=== PATIENT | female | born 1960 | race Caucasian/White ===

== ENCOUNTER 2021-04-29 22:19 | Inpatient (IN) | payer OTHER ==
[~2021-04-29] VITALS: Ht 160 cm; Wt 81.2 kg
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
--- NOTE | 2021-04-30 05:53 | NUR ---
Medications restarted per HABILITATION WORKER [place]ould but due to not being able to prescribe controlled substances pt's clonazepam, restoril, and norco were not restarted and will have to be addressed by the day team. HABILITATION WORKER Ada did order pt's tramadol. Per [facility] pt's clonazepam is 0.5 mg BIDPRN but pt states "it's four times a day". Pt was educated that this would have to be verified with her pharmacy. Pt states she uses [facility] in [place], phone number and it opens at 0700.
[2021-04-30 06:09] LABS: CHOLESTEROL 137 mg/dL (<200); HDL CHOLESTEROL 41 mg/dL (>40); LDL CHOLESTEROL 78 mg/dL (<100); TC:HDL 3.3 Ratio (Not establshd); TRIGLYCERIDE 91 mg/dL (<150); VLDL 18 mg/dL (<40)
[2021-04-30 06:17] LABS: SERUM ASSESSMENT Clear
--- NOTE | 2021-04-30 07:20 | NUR ---
[facility] was called and clonazepam was verified as last filled on 04/08/21 for 0.5mg QID.
[2021-04-30 08:45] LABS: HEMATOCRIT 33.6 % (37.0-47.0); HEMOGLOBIN 9.8 gm/dL (12.0-15.0); MCH 20.9 pg (26.0-34.0); MCHC 29.3 g/dL (28.0-37.0); MCV 71.4 fL (80.0-100.0); PLATELET COUNT 389 thou/uL (150-400); RDW 21.3 % (10.5-14.5); WBC 6.9 thou/uL (4.0-11.0)
[2021-04-30 08:46] LABS: CALCIUM 8.5 mg/dL (8.5-10.1); CREATININE 0.8 mg/dL (0.6-1.0); POTASSIUM 4.2 mmol/L (3.5-5.1)
[2021-04-30 10:44] VITALS: BP 105/33
[2021-04-30] MEDS ORDERED: TRAMADOL 50 MG50 MG PO (10:47)
[2021-04-30 11:27] LABS: ABSOLUTE NEUTROPHILS 3.8 thou/uL (1.4-8.2)
[2021-04-30 11:28] LABS: ANISOCYTOSIS 2+
[2021-04-30 11:29] LABS: HYPOCHROMASIA 2+
[2021-04-30 11:30] LABS: MICROCYTES 1+
--- NOTE | 2021-04-30 12:52 | NUR ---
04-30-2021--1230--Went into see new patient at approximately 1030 with the Doctor. The patient states she hasn't slept for several days and she is very tired. She reports the reason she is here is because "I'm in so much pain". The face sheet states she is here due to psychosis. Her psychiatrist is Dr. Jhaveri. She reports he has had her o n tomazapam for sleep. The doctor told her we could help her with the sleep but the hospitalist would have to help her with the pain. Doctor questioned hewr being able to live alone as questionable. She reports she is supposed to have home health come in and help her clean, etc. She stated she thought she could get 3 hours 3 times per week. Doctor questions if she can get enough help in the home . She thinks that would be enough. Patient states she has no DPOA. I told her I would explain it to her further later on. She stated if she was to name someone it would be her sister Isabell Asher. Will finish up note later this date.
--- NOTE | 2021-04-30 15:45 | NUR ---
REQUESTED AND RECEIVED ULTRAM 50MG PO PRN AT 1300 FOR ABDOMINAL PAIN RATED A 10 ON 1-10 SCALE. TEARFUL DURING 1;1 WITH NURSING REQUESTING KLONOPIN-DR MEREDITH CONTACTED AND ORDERS RECEIVED FOR KLONOPIN 0.5MG PRN GIVEN AT 1500-DOES REPORT FLEETING SH THOUGHTS HOWEVER DENIES SPECIFIC PLAN/INTENT-DENIES ANY PAIN RELIEF WITH ADMINISTRATION OF ULTRAM REPORTING PAIN REMAINS A 10/10
--- NOTE | 2021-04-30 18:00 | NUR ---
RN TO LAB TO COLLECT CULTURE TUBE FOR OBTAINING MRSA CULTURE OF WOUND. PT APPROACHED IN ROOM REPORTING SEVERE PAIN TO WOUND FROM EARLIER "PACKING" DONE BY WOUND MD-STATES ULTRAM NOT HELPING. REFUSING WOUND CULTURE AT THIS TIME
[2021-04-30 19:25] VITALS: BP 109/56
[2021-04-30 21:12] VITALS: BP 109/56
[2021-04-30 23:06] LABS: GLYCOHEMOGLOBIN (HGB A1C) 5.3 % (4.8-5.6)
--- NOTE | 2021-05-01 04:41 | NUR ---
Anay was alert and oriented x4 this shift. She presented as withdrawn and isolative to her room. She initially appeared irritable and expressed frustration due to not having her restoril ordered and voiced c/o pain to her abdomen and back, 10/10. Pt was given tramadol PRN and an hour later pt was calling out from her room to this RN, asking to talk to the hospitalist regarding her pain medication stating "I'm in so much pain. They packed my wound today and it's drying out and it really hurts". EPIC ANESTHESIA ANALYST Ada was paged and order received for a one time dose of norco 5-325 mg PO which pt stated was effective in decreasing her pain to 8/10. Pt asked for a snack and came out to the dayroom to grab something to eat. She received elma PRN klonopin per pt request at 2300 and appeared to rest comfortably throughout the night. She denied SI/HI/BURKETT and remained safe while on the unit. Pt's labs resulted from dayshift and Hgb is 9.8, will pass on to day team; will continue to monitor.
[2021-05-01 09:39] VITALS: BP 140/63
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
--- NOTE | 2021-05-01 17:02 | NUR ---
Alert and orientated X4. Quiet, calm and cooperative. Denies SI/HI, reports being depressed. Reports pain 9/10, tramadol given without any relief. Reporting abdominal pain but showed no s/o distress when abdominal wounds being cleaned and packed. Spoke with Dr. Arshad, hydrocodone given per order with partial relief. Breath sounds clear. Reg HR auscultated. Color pink with brisk capillary refill and palpable peripheral pulses. Voids independently. Active bowel sounds over soft, rounded abdomen. Packing removed from both abdominal incisions. Cleaned with NS. L upper quadrant abdominal wound with fair amt brown drainage. Packed with Aquacel AG per order. Small midline wound cleaned with NS but aquacel AG kept breaking when attempting to pack. Dr. Winston notified, odofoam tape ordered. Packed late in afternoon and both wounds covered with optifoam drsg. Pt calm and compliant with both drsg changes. Reports pain 10/10 but has no s/o distress. Hydrocodone given per order and education provided about addiction potential. Pt verbalizes understanding. COVID test done and pt had no s/o distress or reaction. When commented on she stated, "Why fight it?" Partial relief to second dose of hydrocodone. Currently in room without s/o distress.
[2021-05-01 19:15] VITALS: BP 110/57
--- NOTE | 2021-05-02 04:20 | NUR ---
05-01-21 CARE TRANSFERRED 1899. LATER PT AAOX4, VSS, RR EVEN AND NONLABORED ON RA. PT DENIES SI/HI, BUT REPORTS PAIN IN ABD. PT PRESENTS VERY FLAT, CALM AND COOPERATIVE. PT REPORTS SHE DID NOT WANTED TO KILL HERSELF, JUST WANTED THE PAIN TO GO AWAY. PT LUNGS CLEAR, HT RR, ABD ACTIVE/ROUNDED. DRESSING DRY AND INTACT ON ABD. PT HAD NO DIFFIUCLTIES TAKING MEDICATION WHOLE WITH WATER. PT BED WAS ADJUSTED FOR COMFORT. PAIN BEING MANAGED WITH PRN MEDICATION. PT WILL CONTINUE TO BE MONITOR PER [facility] PROTOCOL.
[2021-05-02 09:09] VITALS: BP 113/52
[2021-05-02 10:11] VITALS: BP 113/60
--- NOTE | 2021-05-02 11:24 | NUR ---
RESUMMED CARE FROM OVERNIGHT SHIFT THIS AM, PATIENT ALERT ORIENTED TIMES 4. PATIENT DENIES SI/HI/AH/VH AT PRESENT, PATIENT ATE BREAKJFAST TOOK MEDICATION WITHOUT INCIDENCE. PATIENT WOUNDS CHANGED THIS AM SMALL BROWN DRAINAGE ON ODIFORM DRESSING. PATIENTS ABDOMEN SOFT BOWEL SOUNDS PRESENT, PATIENTS LUNGS CLEAR. PATIENT PARTICIPATED IN GROUPS INTERACTING WITH OTHER PEERS APPROPRIATELY. WILL CONTINUE TO MONITOR PATIENT FOR SAFETY AND BEHAVIORS.
[2021-05-02 19:04] VITALS: BP 120/73
[2021-05-02 20:10] VITALS: BP 120/73
--- NOTE | 2021-05-03 01:11 | NUR ---
PATIENT SAT AT A TABLE IN DAYROOM ALL EVENING UNTIL BEDTIME. SHE HAS BEEN CALM AND COOPERATIVE. SHE HAD HS SNACK. PATIENT TOOK ALL HER MEDS WHOLE WITH WATER. PATIENT REQUESTED A HYDROCODONE PRN WITH HS MEDS FOR GENERALIZED AND BACK PAIN. PATIENT HAS BEEN SLEEPING AND UP ONCE SINCE GOING TO BED TO USE THE BATHROOM. REVIEWED MEDS WITH THE PATIENT. CONTINUING TO MONITOR.
[2021-05-03 09:36] VITALS: BP 148/77
[2021-05-03 09:50] VITALS: BP 148/77
--- NOTE | 2021-05-03 17:20 | NUR ---
Anay was alert and oriented x4 this shift. She presents as calm, cooperative, pleasant, and appropriate. She appeared to be in better spirits this shift and voiced that she feels as though things are improving. She denied SI/HI/BURKETT and remained safe while on the unit. She participated in groups and was social with peers on the unit. She was medication compliant, without difficulty. She voiced c/o generalzied pain with an emphasis to her abdomen and back; tylenol and hydrocodone given PRN with some effectiveness, although pt was hoping to see the hospitalist today regarding pain management. Pt's dressings were changed this shift per specific wound dressing orders. Pt's O2 was initially 89% but upon recheck was 93%. Pt stated she was going to walk around this shif to try and get some strength back. Will continue to monitor.
[2021-05-03 19:03] VITALS: BP 114/67
[2021-05-03 19:40] VITALS: BP 114/67
--- NOTE | 2021-05-04 04:00 | NUR ---
PATIENT CARE WAS RESUMED AT 1900. SHE IS ALERT AND ORIENTED. SHE WAS AT THE DINING AREA SOCIALIZING WITH OTHER PATIENTS. SHE DENIES SI/AVH/HI. SHE IS CONTINENT OF BOWEL AND BLADDER. LUNGS ARE LEAR. SHE TOOK HER MEDS WHOLE. NO CONCERNS NOTED. MODERATE ASSIT WITH CARE. SHE AMBULATES AND PRN PAIN MEDS GIVEN WITH SOME GOOD EFFECT.Q 12MINUTES CHECK ARE ONGOING, BED IS LOW, LOCKED AND ALARMED. NONE SKID SOCKS ON CONTINUE CARE
[2021-05-04 09:09] VITALS: BP 125/75; BP 148/77
[2021-05-04 10:10] VITALS: BP 125/75
--- NOTE | 2021-05-04 11:35 | NUR ---
05-04-2021--4171--Attended team meeting for patient this date. She slept 4.4 hours last night. Can DC Tuesday. Appt with Dr. Jhaevri needed--he is her outpatient psychiatrist. No suicidal/homicidal ideations currently. She states her pain os still significant.
--- NOTE | 2021-05-04 14:48 | NUR ---
Anay was alert and oriented x4 this shift. She expressed that she did not sleep well last night and became tearful, stating that when she doesn't sleep she feels "off". She also expressed "feeling empty" until "my medicine kicked in and I felt a little better". She was medication and meal compliant, without difficulty. She denied SI/HI/BURKETT and remained safe on the unit this shift. She also expressed feeling worried/overwhelmed as there are things she has to take care of at home so she does not lose her medicaid coverage, therefore she expressed wishes to go home soon. Overall, she expressed she feels as though things have improved. Pt had c/o pain this shift, norco PRN given with effectiveness. Pt has been social with peers and participated in groups. Both wound dressing changed per particular orders; will continue to monitor.
--- NOTE | 2021-05-04 14:57 | NUR ---
CONSULT [id number] WAS COMPLETED BY THIS COMMUNITY RELATIONS SPECIALIST.
[2021-05-04 20:07] VITALS: BP 121/73
[2021-05-04 22:00] VITALS: BP 121/73
--- NOTE | 2021-05-05 02:32 | NUR ---
PATIENT CARE WAS RESUMED AT 1900. SHE WAS SITTING AT THE TABLE IN THE DININIG ROOM WCHATTING WITH ANOTHER RESIDENT.SHE AMBULATES AND MODERATE ASSIT WITH CARE. SHE IS CONTIENT AND ABLE TO VERBALIZE SOME CARE. SHE TOOK HER MEDS WHOLE. LUNGS ARE CLEAR BS ACTIVE X4 QUAD. ABD DRESSING INTACT. SHE DENIE SI/AVH/HI. [id number] CHECK IS ONGOING, BED IS LOW, AND LOCKED.
[2021-05-05 11:09] VITALS: BP 121/73
[2021-05-05] MEDS ORDERED: NICOTINE1 EACH TRANSDERM (11:23)
[2021-05-05] MEDS ORDERED: HYDROCODON-ACE1 EAC7 PO (11:25)
--- NOTE | 2021-05-05 11:25 | NUR ---
Alert and orientated X4. Calm, cooperative and compliant without any s/o distress. Denies any SI/HI since admission. [place] screening done prior to discharge and she does admit to significant SI, attempt and plan prior to admission but has not had any since. Identifies stressors as feeling overwhelmed. Refused nicotene patch this AM stating she has decided to continue to smoke but much less d/t she needs it to cope with stress. Smoking cessation education provided, able to state risks of smoking. States she does not want to lie and say she will quit when she does not have any intent to quit at this time. Breath sounds clear. Reg HR auscultated. Color pink with brisk capillary refill and palpable peripheral pulses. No edema noted. Independent with voiding. Active bowel sounds over soft, rounded abdomen. Hydocodone given for abdominal pain of 9/10 although she does not display and s/s of pain. Wounds without s/o infection, decreased brown drg from larger wound, both cleaned and packed/dressed per order. Pt. prepared for discharge, no s/o distress. Ambulating with steady gait. Dr. Hrebert spoke with pt and is aware of [place] screening. Plan on discharging late AM/early afternoon.
[2021-05-05] MEDS ORDERED: CYMBALTA60 MG PO (11:26)
[2021-05-05] MEDS ORDERED: NEURONTIN 400400 M1 PO (11:26)
[2021-05-05] MEDS ORDERED: REMERON 30 MG T30 M1 PO (11:27)
[2021-05-05] MEDS ORDERED: DALMANE15 MG PO (11:27)
[2021-05-05] MEDS ORDERED: PROTONIX40 M4 PO (11:28)
[2021-05-05] MEDS ORDERED: B-12500 MCG PO (11:28)
[2021-05-05] MEDS ORDERED: CENTRUM SILVER1 EAC4 PO (11:29)
[2021-05-05] MEDS ORDERED: RESTORIL15 M1 PO (11:34)
--- NOTE | 2021-05-05 12:13 | NUR ---
Pt has the following upcoming appointments: [facility]- 05/11/2020 @ 1015 Dr. Sinan Jhaveri, Psychiatrist- 06/08/2020 @ 1445 Dr. Moct[place]uma, PCP- 05/14/2020 @ 1500 Information was verbally told to Pt and put in the discharge document
[2021-05-05 12:43] VITALS: BP 121/73
[2021-05-05 13:06] VITALS: BP 121/73
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
== END 2021-05-05 12:50 | disposition home or self-care (01) | DRG 881 ==
LOC: SBH
PROVIDERS: Nurse Practitioner Psychiatric/Mental Health; ADMIT Psychiatry & Neurology Psychiatry; ATTEND Psychiatry & Neurology Psychiatry
DX: F32.9 Major depressive disorder, single episode, unspecified (principal); E87.0 Hyperosmolality and hypernatremia; T14.91XA Suicide attempt, initial encounter; X78.9XXA Intentional self-harm by unspecified sharp object, initial encounter; J44.9 Chronic obstructive pulmonary disease, unspecified; G31.84 Mild cognitive impairment of uncertain or unknown etiology; M19.90 Unspecified osteoarthritis, unspecified site; G89.29 Other chronic pain; M54.9 Dorsalgia, unspecified; E53.8 Deficiency of other specified B group vitamins; D64.9 Anemia, unspecified; S31.109A Unspecified open wound of abdominal wall, unspecified quadrant without penetration into peritoneal cavity, initial encounter; Z20.822 Contact with and (suspected) exposure to COVID-19; E78.5 Hyperlipidemia, unspecified; K21.9 Gastro-esophageal reflux disease without esophagitis; I10 Essential (primary) hypertension; Z94.9 Transplanted organ and tissue status, unspecified; Z87.891 Personal history of nicotine dependence; Z98.84 Bariatric surgery status; Z79.891 Long term (current) use of opiate analgesic; Z71.6 Tobacco abuse counseling; X58.XXXA Exposure to other specified factors, initial encounter; Y93.89 Activity, other specified; Y92.89 Other specified places as the place of occurrence of the external cause; Y99.8 Other external cause status
CPT/HCPCS: 10880

== ENCOUNTER 2021-04-29 23:06 | Emergency (ER) | payer OTHER ==
[~2021-04-29] VITALS: Ht 152.4 cm; Wt 102.1 kg
[2021-04-30 03:49] VITALS: BP 106/61
[2021-04-30] MEDS ORDERED: TRAMADOL 50 MG50 MG PO (10:47)
== END 2021-04-30 04:04 ==
LOC: ER 23:06
PROVIDERS: Emergency Medicine
DX: F29 Unspecified psychosis not due to a substance or known physiological condition (principal); Z20.822 Contact with and (suspected) exposure to COVID-19